=== PATIENT | female | born 1980 | race Caucasian/White ===

== ENCOUNTER 2019-04-14 17:59 | Emergency (ER) | payer MEDICAID ==
[~2019-04-14] VITALS: Ht 157.5 cm; Wt 73.8 kg
[~2019-04-14 17:59] MED LIST: ACET500C5 PO; CEPH-443 PO; ONDA4TAB14 PO; PRENAT PO
[2019-04-14 18:20] VITALS: BP 118/75; PULSE 69; RESP 20; Ht 157.5 cm; Wt 73.8 kg
[2019-04-14] MEDS ORDERED: DIPHTH/TET/ACEL PERTUSS (ADULT) 0.5 ML VIAL IM* ONE (19:00)
[2019-04-14] MEDS ORDERED: HYDROCODONE/APAP (5/325) TAB PO ONE (19:00)
[2019-04-14] MEDS ORDERED: IBUP-1542 PO (21:02)
--- NOTE | 2019-04-14 21:31 | ERD ---
ER Documentation Chief Complaint Chief Complaint c/o right point finger "crushed on a car door" HPI 38-year-old female with no significant past medical history presenting to the emergency department complaining of injury to her distal right index finger which occurred just prior to arrival. She states she accidentally slammed in a car door. Pain is rated 8/10 severity and constant. She took Tylenol with some relief. She denies any other symptoms or injuries at this time. ROS All systems reviewed and are negative except as per history of present illness. Medications Home Meds Active Scripts Ibuprofen* (Motrin*) 600 Mg Tab, 600 MG PO Q6, #30 TAB Prov:WILMER QUIROS PA-C 04/14/19 Acetaminophen* (Tylophen*) 500 Mg Capsule, 1 CAP PO Q6H PRN for PAIN AND OR ELEVATED TEMP, #20 CAP Prov:TIMA MUHAMMAD NP 08/04/16 Cephalexin* (Keflex*) 500 Mg Capsule, 500 MG PO QID for 7 Days, CAP Prov:TIMA MUHAMMAD NP 08/04/16 Ondansetron (Ondansetron Odt) 4 Mg Tab.rapdis, 4 MG PO Q8 PRN for NAUSEA AND/OR VOMITING, #30 TAB Prov:TIMA MUHAMMAD NP 08/04/16 Multivit/Min/Fol Ac/Iron/Pren* ( S*) 1 Tab Tab, 1 TAB PO DAILY, #100 TAB Prov:TIMA MUHAMMAD NP 08/04/16 Reported Medications [none] Unknown Strength No Conflict Check 08/04/16 Allergies Allergies: Coded Allergies: No Known Drug Allergy (Verified Allergy, Unknown, 12/04/10) PMhx/Soc History of Surgery: No Anesthesia Reaction: No Hx Neurological Disorder: No Hx Respiratory Disorders: No Hx Cardiac Disorders: Yes (Htn) Hx Psychiatric Problems: No Hx Miscellaneous Medical Probl: No Hx Alcohol Use: No Hx Substance Use: No Hx Tobacco Use: No Smoking Status: Never smoker FmHx Family History: No diabetes Physical Exam Vitals Vital Signs Date Temp Pulse Resp B/P (MAP) Pulse Ox O2 O2 Flow FiO2 Time Delivery Rate 04/14/19 96.8 69 20 118/75 95 18:20 (89) Physical Exam Const: No acute distress Head: Atraumatic Eyes: Normal Conjunctiva ENT: Normal External Ears, Nose and Mouth. Neck: Full range of motion. No meningismus. Resp: No respiratory distress. Skin: No petechiae or rashes Back: No midline or flank tenderness Ext: No cyanosis, or edema. Skin avulsion noted to the distal right index finger with mild edema. Full range of motion of all fingers of the right hand. There is no tenderness palpation of the radial or ulnar aspect of the right wrist. Range of motion of the right wrist, right elbow and right shoulder is intact. Patient is neurovascularly intact the right upper extremity with 2+ radial pulses. Compartments are soft. Neur: Awake and alert Psych: Normal Mood and Affect Results 24 hrs Current Medications Medications Dose Sig/Adebayo Start Time Status Last (Trade) Ordered Route PRN Stop Time Admin Dose Reason Admin 1 tab ONCE ONCE 04/14/19 DC 04/14/19 Acetaminophen PO 19:00 19:06 / 04/14/19 19:02 Hydrocodone Bitart ([place] (5/325)) Diphtheria/ 0.5 ml ONCE ONCE 04/14/19 DC 04/14/19 Tetanus/Acell IM* 19:00 19:07 Pertussis 04/14/19 19:02 (Adacel) [place] [address] Radiology Main Line: [phone] DIAGNOSTIC IMAGING REPORT Patient: IVÁN BURKS : 1980 Age: 38 Sex: F MR #: [id number] DOS: 04/14/19 0000 Ordering MD: WILMER QUIROS PA-C Location: [facility] Room/Bed: PROCEDURE: XR finger. CLINICAL INDICATION: Right index finger pain TECHNIQUE: PA, oblique and lateral views of the right index finger were obtained. COMPARISON: None available. FINDINGS: Mineralization is within normal limits. No fracture or osseous lesion is identified. Joint spaces are preserved. Soft tissue swelling is present. No radiopaque foreign body is present. RPTAT:KHANH IMPRESSION: Soft tissue swelling without acute osseous abnormality of the right index finger. Physician Chad Date Time Electronically viewed and signed by Jose Armando Pham Physician on 04/14/2019 20:32 JR/ CC: WILMER QUIROS PA-C [id number] Procedures/MDM 38-year-old female presenting to the emergency department with crush injury to the right index finger. Wound care was provided. Patient was placed in a metal finger splint and was neurovascularly intact post splint placement. X-rays negative for any sign of fracture. The full report interpreted by the radiologist may be viewed above.Splint Assessment: Neurovascularly intact post splint placement with good fit. Patient's extremity symptoms have stabilized while they have been evaluated in the department and are appropriate for outpatient follow up. No evidence of compartment syndrome, neurologic injury, vascular injury, open joint, open fracture, tendon laceration, or foreign body. No evidence of life- threatening pathology at time of discharge. Pt/family in agreement with discharge plan/diagnosis. Pt/family advised to return immediately with any new or worsening symptoms. Follow-up with primary care physician within the next 1- 2 days. Departure Diagnosis: Primary Impression: Crushing injury of right index finger Condition: Fair Patient Instructions: Crush Injury, Hand/Finger Referrals: [facility] () Usted se knight hecho un examen mdico de control que le indica que no est en julienne condicin que requiera tratamiento urgente en el Departamento de Emergencia. Un estudio ms profundo y el tratamiento de fuentes condicin pueden esperar sin ningn riesgo hasta que usted sea atendida/o en el consultorio de fuentes mdico o julienne clnica. Es responsabilidad suya arreglar julienne wesley para el seguimiento del carmen. MANEJO DE CONDICIONES NO URGENTES EN EL FUTURO 1) Si usted tiene un mdico de atencin primaria: Usted debera llamar a fuentes mdico de atencin primaria antes de venir al departamento de emergencia. Despus de las horas de consultorio, fuentes doctor o fuentes asociado/a est disponible por telfono. El mdico o enfermero de ildefonso en el servicio telefnico puede asesorarle por jonathan medio para atender el problema, o carmen contrario se puede programar julienne wesley. 2) Si usted no tiene un mdico de atencin primaria: Llame al mdico o clnica de referencia que aparece abajo mahsa las horas de consultorio para hacer julienne wesley para que le vean. CLINICAS: [facility] [phone] [facility] [phone] [facility] [phone] [place] [address] [phone] [facility] [place] [address] [phone] [facility] [phone] [address] Additional Instructions: Llame al doctor MAANA y viktoriya julienne WESLEY PARA DENTRO DE 1-2 VILLAGOMEZ.Dgale a la secretaria que nosotros le instruimos hacer esta wesley.Avise o llame si fuentes c ondicin se empeora antes de la wesley. Regresa aqui si peor o no mejor. WILMER QUIROS PA-C April 14, 2019 21:31
== END 2019-04-14 22:34 | disposition home or self-care (01) ==
LOC: FTE 17:59
DX: S67.190A Crushing injury of right index finger, initial encounter (principal); I10 Essential (primary) hypertension; W23.0XXA Caught, crushed, jammed, or pinched between moving objects, initial encounter; Y92.810 Car as the place of occurrence of the external cause
CPT/HCPCS: 29130; 73140; 90471; 90715; Z7502; Z7610